=== PATIENT | female | born 1975 | race American Indian/Alaskan Native ===

== ENCOUNTER 2016-04-07 16:53 | Emergency (ER) | payer MEDICAID ==
[2016-04-07] MEDS ORDERED: TYLENOL PO ONE (17:01)
[2016-04-07] MEDS ORDERED: MOTRIN PO ONE (18:21)
--- NOTE | 2016-04-07 18:27 | Emergency Department Report ---
Chief Complaint: Fever Stated Complaint: FLU SX/FEVER/HEADACHE Time Seen by Provider: 04/07/16 18:19 - HPI History of Present Illness: 40-year-old female comes in for flulike symptoms 3 days. She reports that a headache and fever here today her fever is 102.6R recheck that at 102.2. Patient reports she's been having a cough and when she coughs it makes her head hurt even more. She was given Tylenol 2 hours ago with no refills or fever. LMP 04/06/2016 - Exam Vital Signs: Vital Signs 04/07/16 04/07/16 16:57 17:07 Temperature 102.6 F H Pulse Rate 111 H Respiratory 20 20 Rate Blood Pressure 138/100 O2 Sat by Pulse 99 Oximetry Physical Exam: NAD, no acute distress tachycardic respiratory clear to auscultation MSE screening note: Focused history and physical exam performed. Due to findings the following was ordered: CBC BMP and influenza ordered ED Disposition for MSE Condition: Stable
[2016-04-07 18:37] LABS: Basophils % (Auto) 0.4 % (0.0-1.8); Eosinophils % (Auto) 0.1 % (0.0-4.3); Hematocrit 34.8 % (30.3-42.9); Hemoglobin 11.6 gm/dl (10.1-14.3); Mean Corpuscular HGB Conc 33 % (30-34); Mean Corpuscular Hemoglobin 29 pg (28-32); Mean Corpuscular Volume 87 fl (79-97); Platelet Count 278 K/mm3 (140-440); Red Blood Count 4.02 M/mm3 (3.65-5.03); White Blood Count 3.8 K/mm3 (4.5-11.0)
[2016-04-07 18:54] LABS: BUN/Creatinine Ratio 6.66; Blood Urea Nitrogen 6 mg/dL (7-17); Calcium 8.4 mg/dL (8.4-10.2); Carbon Dioxide 26 mmol/L (22-30); Chloride 94.5 mmol/L (98-107); Glucose 153 mg/dL (65-100); Sodium 135 mmol/L (137-145)
[2016-04-07 19:20] LABS: Anion Gap 18 mmol/L
[2016-04-08] MEDS ORDERED: NACL 0.9% 1000 ML 1,000 ML IV ONE (08:23)
[2016-04-08] MEDS ORDERED: TYLENOL #3 PO ONE (08:23)
[2016-04-08] MEDS ORDERED: K-DUR PO ONE (08:23)
--- NOTE | 2016-04-08 08:27 | Emergency Department Report ---
ED Fever HPI - General Chief Complaint: Fever Stated Complaint: FLU SX/FEVER/HEADACHE Time Seen by Provider: 04/07/16 18:19 Source: patient Exam Limitations: no limitations - History of Present Illness Initial Comments: Patient reports flu-like symptoms such as generalized body aches, headache, cough and fever that started 3 days ago. LMP 04/06/16 Timing/Duration: other (3 days ago) Fever Severity/Quality: greater than 102 F Fever Therapy [employer]: other (TheraFlu) Associated Symptoms: cough, headache, muscle aches. denies: abdominal pain, chest pain, confusion, diaphoresis, nausea/vomiting, rash, shortness of breath, sore throat, stiff neck, syncope, weakness ED Review of Systems ROS: Stated complaint: FLU SX/FEVER/HEADACHE Other details as noted in HPI Constitutional: chills, fever. denies: diaphoresis, malaise, weakness Eyes: denies: eye pain, eye discharge, vision change ENT: denies: ear pain, throat pain, dental pain, hearing loss, epistaxis, congestion Respiratory: cough. denies: orthopnea, shortness of breath, SOB with exertion, SOB at rest, stridor, wheezing Cardiovascular: denies: chest pain, palpitations, dyspnea on exertion, orthopnea , edema, syncope, paroxysmal nocturnal dyspnea Gastrointestinal: denies: abdominal pain, nausea, vomiting, diarrhea, constipation Genitourinary: denies: urgency, dysuria, frequency, hematuria, discharge, abnormal menses, dyspareunia Musculoskeletal: arthralgia (generalized). denies: back pain, joint swelling, myalgia Skin: denies: rash, lesions, change in color, change in hair/nails, pruritus Neurological: headache. denies: weakness, numbness, paresthesias, confusion, abnormal gait, vertigo ED Past Medical Hx - Past Medical History Previous Medical History?: Yes Hx Hypertension: Yes (2012) Hx Congestive Heart Failure: No Hx Diabetes: No Hx GERD: Yes Hx Psychiatric Treatment: Yes (anxiety) Hx Asthma: No Hx COPD: No Additional medical history: Thrombocytosis - Surgical History Past Surgical History?: Yes Hx Cholecystectomy: Yes Additional Surgical History: tubal ligation - Social History Smoking Status: Never Smoker Substance Use Type: Alcohol, Prescribed, Other - Medications Home Medications: Home Medications Medication Instructions Recorded Confirmed Last Taken Type Famotidine [Pepcid] 40 mg PO DAILY 10/21/16 10/21/16 10/20/16 History 40mg Ferrous Sulfate [Feosol 325 MG tab] 325 mg PO DAILY 01/15/16 01/15/16 01/14/16 History 325mg Triamter/Hctz 37.5-25 mg 1 tab PO QDAY 01/15/16 01/15/16 01/14/16 History [Maxzide-25] 37.5/25 mg HYDROcodone/APAP 5-325 [[place] 1 - 2 each PO Q6HR PRN #10 tablet 01/18/16 Unknown Rx 5/325] Ibuprofen [Motrin 800 MG tab] 800 mg PO Q8HR PRN #20 tablet 01/18/16 Unknown Rx Benzonatate [Tessalon Perles] 100 mg PO Q8HR #12 capsule 04/08/16 Unknown Rx Ibuprofen [Motrin 800 MG tab] 800 mg PO Q8HR PRN #30 tablet 04/08/16 Unknown Rx ED Physical Exam - General Limitations: No Limitations General appearance: alert, in no apparent distress - Head Head exam: Present: atraumatic, normocephalic, normal inspection - Eye Eye exam: Present: normal appearance, PERRL, EOMI Pupils: Present: normal accommodation - ENT ENT exam: Present: normal exam, normal orophraynx, mucous membranes moist, TM's normal bilaterally, normal external ear exam. Absent: mucous membranes dry - Neck Neck exam: Present: normal inspection, full ROM. Absent: tenderness, meningismus, lymphadenopathy, thyromegaly - Respiratory Respiratory exam: Present: normal lung sounds bilaterally. Absent: respiratory distress, wheezes, rales, rhonchi, stridor, chest wall tenderness, accessory muscle use, decreased breath sounds, prolonged expiratory - Cardiovascular Cardiovascular Exam: Present: normal rhythm, tachycardia, normal heart sounds. Absent: regular rate, bradycardia, systolic murmur, diastolic murmur, rubs, gallop, clicks, JVD, S3, S4 - GI/Abdominal GI/Abdominal exam: Present: soft, normal bowel sounds. Absent: distended, tenderness, guarding, rebound, rigid - Rectal Rectal exam: Present: deferred - Extremities Exam Extremities exam: Present: normal inspection, full ROM, normal capillary refill. Absent: tenderness, pedal edema, joint swelling, calf tenderness - Back Exam Back exam: Present: normal inspection, full ROM. Absent: CVA tenderness (R), CVA tenderness (L) - Neurological Exam Neurological exam: Present: alert, oriented X3, CN II-XII intact, normal gait, reflexes normal. Absent: motor sensory deficit - Psychiatric Psychiatric exam: Present: normal affect, normal mood - Skin Skin exam: Present: warm, dry, intact, normal color. Absent: rash ED Course Vital Signs 04/07/16 04/07/16 04/07/16 16:57 17:07 19:47 Temperature 102.6 F H 100.2 F H Pulse Rate 111 H Respiratory 20 20 Rate Blood Pressure 138/100 Blood Pressure [Right] O2 Sat by Pulse 99 Oximetry 04/08/16 04/08/16 02:50 11:39 Temperature 100.4 F H 98.6 F Pulse Rate 102 H 91 H Respiratory 20 18 Rate Blood Pressure Blood Pressure 141/95 125/85 [Right] O2 Sat by Pulse 98 99 Oximetry - Reevaluation(s) Reevaluation #1: 04/08/16 08:25 Intravenous fluids, pain medication and potassium orally ordered. Patient reports that her influenza swab was collected 12 hours ago, however the specimen did not make it to the lab and patient refused to have another influenza swab done again 04/08/16 11:41 Reevaluation #2: 04/08/16 09:58 Zofran, Pepcid and intravenous fluids ordered ED Medical Decision Making - Lab Data Result diagrams: 04/07/16 18:29 04/07/16 18:29 Lab Results 04/07/16 04/07/16 04/08/16 Range/Units 18:29 18:29 08:40 WBC 3.8 L (4.5-11.0) K/mm3 RBC 4.02 (3.65-5.03) M/mm3 Hgb 11.6 (10.1-14.3) gm/dl Hct 34.8 (30.3-42.9) % MCV 87 (79-97) fl MCH 29 (28-32) pg MCHC 33 (30-34) % RDW 14.0 (13.2-15.2) % Plt Count 278 (140-440) K/mm3 Lymph % (Auto) 18.6 (13.4-35.0) % [place] % (Auto) 12.7 H (0.0-7.3) % Eos % (Auto) 0.1 (0.0-4.3) % Baso % (Auto) 0.4 (0.0-1.8) % Lymph # 0.7 L (1.2-5.4) K/mm3 [place] # 0.5 (0.0-0.8) K/mm3 Eos # 0.0 (0.0-0.4) K/mm3 Baso # 0.0 (0.0-0.1) K/mm3 Seg Neutrophils % 68.2 (40.0-70.0) % Seg Neutrophils # 2.6 (1.8-7.7) K/mm3 Sodium 135 L (137-145) mmol/L Potassium 3.0 L (3.6-5.0) mmol/L Chloride 94.5 L (98-107) mmol/L Carbon Dioxide 26 (22-30) mmol/L Anion Gap 18 mmol/L BUN 6 L (7-17) mg/dL Creatinine 0.9 (0.7-1.2) mg/dL Estimated GFR > 60 ml/min BUN/Creatinine Ratio 6.66 % Glucose 153 H (65-100) mg/dL Calcium 8.4 (8.4-10.2) mg/dL Urine Color Yellow (Yellow) Urine Turbidity Clear (Clear) Urine pH 5.0 (5.0-7.0) Ur Specific Jack 1.019 (1.003-1.030) Urine Protein 100 mg/dl (Negative) mg/dL Urine Glucose (UA) Neg (Negative) mg/dL Urine Ketones Neg (Negative) mg/dL Urine Blood Mod (Negative) Urine Nitrite Neg (Negative) Urine Bilirubin Neg (Negative) Urine Urobilinogen < 2.0 (<2.0) mg/dL Ur Leukocyte Esterase Neg (Negative) Urine WBC (Auto) 4.0 (0.0-6.0) /HPF Urine RBC (Auto) 38.0 (0.0-6.0) /HPF U Epithel Cells (Auto) 2.0 (0-13.0) /HPF Hyaline Casts 1 /LPF Urine Mucus Few /HPF Urine HCG, Qual Negative (Negative) Vital Signs 04/07/16 04/07/16 04/07/16 16:57 17:07 19:47 Temperature 102.6 F H 100.2 F H Pulse Rate 111 H Respiratory 20 20 Rate Blood Pressure 138/100 Blood Pressure [Right] O2 Sat by Pulse 99 Oximetry 04/08/16 04/08/16 02:50 11:39 Temperature 100.4 F H 98.6 F Pulse Rate 102 H 91 H Respiratory 20 18 Rate Blood Pressure Blood Pressure 141/95 125/85 [Right] O2 Sat by Pulse 98 99 Oximetry - Medical Decision Making During the course of ED, Intravenous fluids, pain medication, antiemetic, Pepcid and potassium orally ordered. Patient reports symptomatic relief from symptoms after medications were given in the ED. She was sent home with prescriptions for ibuprofen and Tessalon Perles, instructed to follow-up with selected referral given in ED, he verbalize understanding - Differential Diagnosis URI, Hypokalemia, Influenza, UTI Critical care attestation.: If time is entered above; I have spent that time in minutes in the direct care of this critically ill patient, excluding procedure time. ED Disposition Clinical Impression: Hypokalemia Upper respiratory infection Qualifiers: URI type: unspecified viral URI Qualified Code(s): J06.9 - Acute upper respiratory infection, unspecified Disposition: DISCHARGED TO HOME OR SELFCARE Is pt being admited?: No Does the pt Need Aspirin: No Condition: Stable Instructions: Upper Respiratory Infection (ED) Additional Instructions: Take medication as directed. Follow up with selective referrals given at discharge. Eat potassium-rich foods such as almonds, broccoli, tomatoes, avocados, kiwi, cantaloupe, apricots, and spinach, [place] or beets Prescriptions: Ibuprofen [Motrin 800 MG tab] 800 mg PO Q8HR PRN #30 tablet PRN Reason: Pain Benzonatate [Tessalon Perles] 100 mg PO Q8HR #12 capsule Referrals: PRIMARY CARE,MD [Primary Care Provider] - 3-5 Days [facility] [Outside] - 3-5 Days Forms: Work/School Release Form(ED) Time of Disposition: 11:12
[2016-04-08 08:57] LABS: Bilirubin,Urine NEG (Negative); Blood,Urine MOD (Negative); Ketones,Urine NEG (Negative); Leukocyte Esterase,Urine NEG (Negative); Mucus,Urine FEW /HPF; Nitrite,Urine NEG (Negative); Urobilinogen,Urine < 2.0 mg/dL (<2.0)
[2016-04-08] MEDS ORDERED: PEPCID IV ONE (09:57)
[2016-04-08] MEDS ORDERED: NACL 0.9% 500 ML 500 ML IV ONE (09:57)
[2016-04-08] MEDS ORDERED: ZOFRAN IV ONE (09:57)
[2016-04-08 11:40] VITALS: BP 125/85
== END 2016-04-08 11:41 | disposition home or self-care (01) ==
LOC: ED 16:53
DX: E87.6 Hypokalemia (principal); J06.9 Acute upper respiratory infection, unspecified; R05 Cough; I10 Essential (primary) hypertension; K21.9 Gastro-esophageal reflux disease without esophagitis; F41.9 Anxiety disorder, unspecified; D47.3 Essential (hemorrhagic) thrombocythemia
CPT/HCPCS: 36415; 80048; 81001; 81025; 85025; 96361; 96374; 96375; 99284; J2405; J7030

== ENCOUNTER 2016-05-03 11:25 | Inpatient (IN) | payer MEDICAID, OTHER ==
[2016-04-27 23:24] LABS: Hematocrit 36.7 % (30.3-42.9); Hemoglobin 12.1 gm/dl (10.1-14.3); Mean Corpuscular HGB Conc 33 % (30-34); Mean Corpuscular Hemoglobin 29 pg (28-32); Mean Corpuscular Volume 88 fl (79-97); Platelet Count 398 K/mm3 (140-440); Red Blood Count 4.16 M/mm3 (3.65-5.03); Red Cell Distribution Width 14.9 % (13.2-15.2); White Blood Count 5.1 K/mm3 (4.5-11.0)
[2016-04-27 23:25] LABS: Eosinophils % (Auto) 2.9 % (0.0-4.3)
--- NOTE | 2016-05-03 11:46 | Anesthesia Consultation ---
Anesthesia Consult and Med Hx Date of service: 05/03/16 - Airway Anesthetic Teeth Evaluation: Good ROM Head & Neck: Adequate Mental/Hyoid Distance: Adequate Mallampati Class: Class II Intubation Access Assessment: Probably Good - Pulmonary Exam CTA: Yes - Cardiac Exam Cardiac Exam: RRR - Pre-Operative Health Status ASA Pre-Surgery Classification: ASA2 Proposed Anesthetic Plan: General - Pulmonary Hx Asthma: No COPD: No Hx Pneumonia: No - Cardiovascular System Hx Hypertension: Yes (past hx, lost weight and resolved) - Central Nervous System Hx Psychiatric Problems: No - Endocrine Hx End Stage Renal Disease: No - Hematic Hx Anemia: Yes - Other Systems Hx Alcohol Use: Yes (occas) Hx Cancer: No
--- NOTE | 2016-05-03 11:46 | Anesthesia Day of Surgery ---
Anesthesia Day of Surgery - Day of Surgery Patient Examined: Yes Patient H&P Reviewed: Yes Patient is NPO: Yes
[2016-05-03] MEDS ORDERED: PEPCID PO NR (12:00)
[2016-05-03] MEDS ORDERED: NACL 0.9% 1000 ML 1,000 ML IV SCH (12:00)
[2016-05-03] MEDS ORDERED: VERSED IV NR (12:00)
[2016-05-03] MEDS ORDERED: NEURONTIN PO NR (12:00)
[2016-05-03] MEDS ORDERED: ZOFRAN IV PRN ×2 (12:04→15:22)
[2016-05-03] MEDS ORDERED: SUBLIMAZE ONE (12:46)
[2016-05-03] MEDS ORDERED: MARCAINE-EPI/PF 0.5%-1:200,000 INFILTRATI ONE (12:47)
[2016-05-03] MEDS ORDERED: DECADRON ONE ×2 (12:48→12:59)
[2016-05-03] MEDS ORDERED: MARCAINE-EPI 0.25%-1:200,000 INFILTRATI ONE (12:48)
[2016-05-03] MEDS ORDERED: XYLOCAINE 1% 20 mL ONE (12:53)
--- NOTE | 2016-05-03 12:56 | History and Physical Report ---
History of Present Illness Date of examination: 05/03/16 Chief complaint: Symptomatic fibroid uterus History of present illness: Pt is a 40yo BF LMP 04/30/16 presents for surgical evaluation and treatment for symptomatic fibroid uterus with heavy prolonged vaginal bleeding. Pelvic u/ s showed a 14 x 5.9 x 9.6cm with multiple fibroids. She desires to proceed with a Robotic Assisted Total Hysterectomy with bilateral salpingectomy. She desires ovarian conservation. Past History Past Medical History: blood transfusion, other (anemia) Past Surgical History: cholecystectomy, CASE MANAGERS/uterine surgery (BTL), other ( endoscopy) [employer]NAGERS History: fibroids Family/Genetic History: none Social history: no significant social history, single Medications and Allergies Allergies Allergy/AdvReac Type Severity Reaction Status Date / Time No Known Allergies Allergy Unverified 04/26/16 16:19 Home Medications Medication Instructions Recorded Confirmed Last Taken Type No Known Home Medications [No 04/26/16 04/26/16 Unknown History Reported Home Medications] Active Meds: Active Medications Celecoxib (Celebrex) 200 mg PO PREOP NR Stop: 05/03/16 23:00 Last Admin: 05/03/16 12:45 Dose: 200 mg Famotidine (Pepcid) 20 mg PO PREOP NR Stop: 05/03/16 23:59 Last Admin: 05/03/16 12:45 Dose: 20 mg Gabapentin (Neurontin) 600 mg PO PREOP NR Stop: 05/03/16 23:59 Last Admin: 05/03/16 12:45 Dose: 600 mg Hydromorphone HCl (Dilaudid) 0.5 mg IV Q10MIN PRN PRN Reason: Pain , Severe (7-10) Stop: 05/03/16 23:59 Sodium Chloride (Nacl 0.9% 1000 Ml) 1,000 mls @ 100 mls/hr IV DIRECT JACK Last Admin: 05/03/16 12:45 Dose: 100 mls/hr Cefazolin Sodium (Ancef/Sterile Water 2 Gm/20 Ml) mls @ 80 mls/hr IV PREOP JACK PRN Reason: Protocol Midazolam HCl (Versed) 2 mg IV PREOP NR Stop: 05/03/16 23:59 Ondansetron HCl (Zofran) 4 mg IV ONCE PRN PRN Reason: Nausea And Vomiting Stop: 05/03/16 23:59 Review of Systems All systems: negative - Physical Exam Breasts: Positive: deferred Cardiovascular: Regular rate Lungs: Positive: Clear to auscultation Abdomen: Positive: normal appearance, soft Genitourinary (Female): Positive: normal external genitalia Vagina: Positive: normal moisture Uterus: Positive: enlarged Extremities: Positive: normal Results Result Diagrams: 04/27/16 08:15 All other labs normal. Ultrasound: report reviewed Assessment and Plan - Patient Problems (1) Fibroid uterus Onset Date: 05/03/16 Current Visit: Yes Status: Chronic Qualifiers: Uterine leiomyoma location: submucous Qualified Code(s): D25.0 - Submucous leiomyoma of uterus Plan to address problem: A: Symptomatic fibroid uterus - with multiple fibroids Menometrorrhagia P: Will proceed with a Robotic Assisted Total Hysterectomy with Bilateral salpingectomy Consent signed and all questions answered
[2016-05-03] MEDS ORDERED: ZEMURON IV ONE (12:58)
[2016-05-03] MEDS ORDERED: DILAUDID ONE (12:58)
[2016-05-03] MEDS ORDERED: ZOFRAN ONE (12:58)
[2016-05-03] MEDS ORDERED: DIPRIVAN 10 MG/ML IV ONE (12:58)
[2016-05-03] MEDS ORDERED: XYLOCAINE MPF 2% ONE (12:58)
[2016-05-03] MEDS ORDERED: ANCEF/STERILE WATER 2 GM/20 ML 2 GM/20 ML SYRINGE IV SCH (13:00)
[2016-05-03] MEDS ORDERED: NACL 0.9% 1000 ML 1,000 ML ONE (13:44)
[2016-05-03] MEDS ORDERED: NORMODYNE IV ONE ×2 (13:46→17:00)
[2016-05-03] MEDS ORDERED: NACL 0.9% IR ONE ×2 (14:31→14:32)
[2016-05-03] MEDS ORDERED: NEOSPORIN GU IR ONE (14:31)
[2016-05-03] MEDS ORDERED: WATER FOR IRRIG STERILE IR ONE (14:32)
[2016-05-03] MEDS ORDERED: TORADOL ONE (15:14)
[2016-05-03] MEDS ORDERED: TYLENOL PO PRN (15:22)
[2016-05-03] MEDS ORDERED: NORCO 5/325 PO PRN (15:22)
[2016-05-03] MEDS ORDERED: DULCOLAX PR PRN (15:22)
[2016-05-03] MEDS ORDERED: REGLAN IV PRN (15:22)
[2016-05-03] MEDS ORDERED: PHENERGAN PR PRN (15:22)
[2016-05-03] MEDS ORDERED: NARCAN 0.4 MG/1 ML IV PRN (15:22)
[2016-05-03] MEDS ORDERED: MILK OF MAGNESIA PO PRN (15:22)
[2016-05-03] MEDS ORDERED: BLOXIVERZ ONE (15:30)
[2016-05-03] MEDS ORDERED: ROBINUL ONE (15:30)
--- NOTE | 2016-05-03 15:39 | Operative Report ---
Operative Report Operative Report: Date of procedure: 05/03/2016 Pre-operative diagnosis: 1. Symptomatic fibroid uterus 2. Menometrorrhagia Post-operative diagnosis: Same with extensive pelvic adhesions Procedure name(s): 1. Robotic-assisted total hysterectomy 2. Bilateral salpingectomy 3. Lysis of pelvic adhesions Surgeon: Tony Calabrese MD Director Advertising: Jackelin aWshington - activities assistant Anesthesia: Raymond block followed by general endotracheal intubation EBL: 50 mL's Findings: A 12-14 week size multi-myomatous uterus with tubes showed evidence of previous tubal ligation and normal ovaries bilaterally. Omental adhesions to the anterior abdominal wall. Normal appendix. Procedure: After the patient's first correctly identified she was prepped and draped in the usual sterile fashion and placed in the dorsolithotomy position. The bladder was first catheterized using Cueva catheter and the speculum was placed in the vagina and the anterior lip of the cervix was grasped using a single-tooth tenaculum, and the medium Vesicare cup was placed. The tenaculum and speculum was then removed from the vagina and attention was then turned to the abdomen. The skin knife was used to make a small incision approximately 5 cm above the umbilicus through which a 12 mm trocar was placed under direct visualization. After adequate amount of abdominal insufflation visualization of the pelvic organs found the uterus to be enlarged and the tubes showed evidence of previous tubal ligation bilaterally, and normal ovaries bilaterally. A right lateral incision was made through which a 5 mm trocar was placed under direct visualization. The omental adhesions were obscuring the upper abdomen, thus the adhesions were taken down using the monopolar scissors. A right and left paramedian incision was made through which the 8 mm trochars were placed under direct visualization. The patient was then placed in steep Trendelenburg positioning and the robot was docked on the patient's left side. After all the robotic ports were connected and adequate functioning of the robotic arms were tested the surgeon then proceeded to the console to begin the hysterectomy. First the left round ligament was grasped, cauterized and cut, the left utero- ovarian ligaments were grasped, cauterized and cut, and the left fallopian tube also grasped, cauterized and cut along the mesosalpinx thus freeing the left ovary from the left uterine sidewall. The same procedure was performed on the right. The right round ligament was grasped, cauterized and cut, the right utero-ovarian ligaments were grasped, cauterized and cut, and the right fallopian tube also grasped, cauterized and cut along the mesosalpinx thus freeing the right ovary from the right uterine sidewall. The bladder flap was taken down anteriorly and the uterine vessels were grasped, cauterized and cut bilaterally. The cardinal ligaments were sequentially grasped, cauterized and cut down to the level of the uterosacral ligaments. At this time the posterior colpotomy was performed over the Vcare cup, and the cervix was circumscribed beginning posteriorly and meeting anteriorly until the cervix was freed. The cervix and uterus was then removed through the vagina and sent to pathology. The vaginal cuff was then closed using 2-0 Vloc suture in a running fashion. Irrigation was then performed and after good hemostasis was achieved the procedure was considered complete. The Tisseel sealant was then sprayed across the vaginal cuff site, and after excellent hemostasis was assured Interceed was placed across the vaginal cuff site. All instruments were then removed from the abdominal cavity. And each incision was closed using 0 Vicryl suture in a [id number] configuration on the fascia followed by 4-0 Monocryl suture in a subcuticular fashion on the skin. Each incision was also infiltrated using 0.5% Marcaine solution. The vaginal pack was removed. The patient tolerated the procedure well and was transported to the recovery room in stable condition.
[2016-05-03] MEDS: DILAUDID IV PRN ×3 (15:48→16:15)
[2016-05-03] MEDS ORDERED: D5LR 1,000 ML IV SCH (16:00)
[2016-05-03] MEDS: PERCOCET 5/325 PO PRN ×2 (16:39→22:40)
--- NOTE | 2016-05-03 17:44 | Post Anesthesia Evaluation ---
- Post Anesthesia Evaluation Patient Participated: Yes Airway Patent: Yes Stable Respiratory Function: Yes Nausea/Vomiting: No Temp > 96.8F: Yes Pain Manageable: Yes Adequeate Hydration: Yes Anesthesia Complications: No Block Receding Appropriately: Not Applicable Patient on Ventilator: No
[2016-05-03] MEDS: TORADOL IV SCH (20:45)
[2016-05-03] MEDS: ANCEF/NS 1 GM/50 ML 1 GM/50 ML BAG IV SCH (21:00)
[2016-05-04] MEDS: TORADOL IV SCH ×2 (02:13→10:00)
[2016-05-04] MEDS ORDERED: APRESOLINE IV PRN (02:40)
[2016-05-04] MEDS ORDERED: PROCARDIA XL PO SCH ×2 (03:00→12:00)
[2016-05-04] MEDS: ANCEF/NS 1 GM/50 ML 1 GM/50 ML BAG IV SCH (04:00)
[2016-05-04 04:12] LABS: Hematocrit 34.6 % (30.3-42.9); Hemoglobin 11.4 gm/dl (10.1-14.3)
[2016-05-04] MEDS: PERCOCET 5/325 PO PRN ×2 (07:50→16:45)
--- NOTE | 2016-05-04 09:42 | Admit Criteria Form ---
Admission Criteria Documentation: AMBULATORY SURGERY EXCEPTION CRITERIA Ambulatory Surgery Exception Criteria ( Place 'X' for any and all applicable criteria): Surgery or procedure performed on ambulatory basis may require inpatient stay for[A] ANY ONE of the following(1)(2)(3)(4)(5)(6)(7)(8)(9): [X] I. A preoperative situation, condition, or finding that warrants inpatient stay as indicated by ANY ONE of the following: [X] a) Inpatient care needed because of severity of a disease or condition rather than the surgery (eg, severe cardiac or respiratory disease, severe infection) (15) (16 ) (17) (18) [] b) Emergent procedure (eg, angioplasty for acute ischemia)(19) [] c) Complex surgical approach or situation as indicated by ANY ONE of the following(3): [] i) Open approach needed instead of usual endoscopic, transcatheter, or other less invasive procedure [] ii) Difficult approach because of previous operation [] iii) Airway monitoring required after open neck procedures(20)(21) [] iv) Large mass requiring unusually extensive dissection [] v) Additional complicating feature requiring inpatient care (eg, drain management)(22(23): [] d) Major surgery in a pt with high anesthetic risk as indicated by ANY ONE of the following (2)(3)(5)(7)(8): [] i) ASA risk class III or higher (severe systemic disease impairing function) [D] [] ii) Advanced age (eg, older than 85 years)(14)(24) [] iii) Symptomatic heart failure(25) [] iv) Symptomatic asthma or COPD(8)(21) [] v) Morbid obesity with hemodynamic or respiratory problems(20)( 21)(26)(27) [] vi) Obstructive sleep apnea(20)(21) [] vii) Former premature infants who are younger than 60 weeks [] viii) High risk for severe postoperative abnormalities (eg, severe postoperative hypocalcemia after parathyroidectomy for severe hyperparathyroidism)(27)( 28) [] ix) Unstable angina(25) [] e) Drug-related risk requiring inpatient stay as indicated by ANY ONE of the following(5)(10)(14)(32)(33) [] i) Procedure requires discontinuing drugs or other therapy (eg , antiarrhythmic medication, antiseizure medication), which necessitates inpatient observation or treatment.(18)(31) [] ii) Major surgery and high risk drug use as indicated by ANY ONE of the following: [] 1) Active abuse of cocaine or similar drug [] 2) Monoamine oxidase inhibitor use [] 3) Other drug identified as posing risk [] f) Inadequate outpatient care situation as indicated by ANY ONE of the following(5)(10)(14)(32)(33) [] i) Patient lives remote from medical facility and procedure has urgent complication potential, and temporary nearby residence cannot be arranged [] ii) Patient will have postprocedure incapacitation and inadequate assistance at home, or alternative level of care cannot be arranged. [] iii) Patient will have long general anesthesia or procedure side effect resolution time, and competent person to stay with patient on first postoperative night at home or alternative level of care cannot be arranged. []iv) Other inadequate outpatient situation that cannot be handled by other means [] II. A perioperative event, condition, or finding that warrants inpatient stay as indicated by ANY ONE of the following (1)(2)(3): [] a) Inadequate physiologic recovery: cardiovascular, respiratory, or hemodynamic status not normal or near preoperative baseline(18) [] b) Hemodynamic instability [] c) Patient not alert with near normal or baseline mental status [] d) Temperature not normal or as expected and not appropriate for outpatient treatment of condition [] e) Ambulatory or appropriate activity level status not yet achieved post procedure [E](34)(35)(36) [] f) Operative site not appropriate (eg, unexpected or excessive drainage or bleeding) [] g) Postoperative effects not resolved or adequately managed (eg, significant pain or vomiting not appropriate for outpatient or next level of care)(10)(12) [] h) Complicating features requiring inpatient care as indicated by ANY ONE of the following(37): [] i) Severe complications of procedure (eg, bowel injury, airway compromise, vascular injury,severe hemorrhage) [] ii) Extensive (eg, dissection far beyond usual scope of procedure ) or prolonged (eg, 120 minutes beyond usual) surgery needed requiring inpatient postoperative care [] iii) Conversion to an open or complex procedure that requires inpatient care (eg, open vs laparoscopic cholecystectomy, abdominal vs vaginal hysterectomy)(38) [] iv) Comorbid condition or test result identified during or post procedure that requires inpatient care (7) [] v) Malignant hyperthermia(30) [] vi) Other complicating feature requiring inpatient care(22)(23) Inpatient stay may be needed until ALL of the following are present (1)(2)(3)(4) (5)(6)(10)(14)(33)(40): []a) Physiologic recovery: cardiovascular, respiratory, and hemodynamic status normal or near preoperative baseline []b) Hemodynamic stability []c) Patient alert, with near normal or baseline mental status []d) Temperature appropriate: patient afebrile or temperature appropriate for outpt treatment of condition []e) Activity level appropriate: ambulatory or appropriate activity level post procedure []f) Operative site appropriate as indicated by ALL of the following: []i) Site dry or with expected drainage []ii) Any blood noted is as expected for procedure. []g) Postoperative effects resolved or managed as indicated by ALL of the following: []i) Pain management appropriate for outpatient (or next level of) care(10) []ii) Minimal nausea and vomiting: if present, successfully treated with oral medication(12) []iii) Headache, dizziness, or drowsiness (if present) are mild. []h) Voiding status acceptable as indicated by ANY ONE of the following: []i) Voiding spontaneously []ii) No voiding but instructions given for follow-up in 6 to 8 hours []iii) Urinary catheter in place, and instructions given for follow-up []i) Complicating features requiring inpatient care manageable at a lower level of care(37) []j) Comorbid conditions manageable at a lower level of care(37) The original [employer] content created by [employer] has been revised. The portions of the content which have been revised are identified through the use of italic text or in bold, and [employer] has neither reviewed nor approved the modified material. All other unmodified content is copyright [employer]. Please see references footnoted in the original [employer] edition 2016 Admission Criteria Met: Yes
--- NOTE | 2016-05-04 10:18 | Progress Note ---
Assessment and Plan - Patient Problems (1) Fibroid uterus Onset Date: 05/03/16 Current Visit: Yes Status: Chronic Qualifiers: Uterine leiomyoma location: submucous Qualified Code(s): D25.0 - Submucous leiomyoma of uterus (2) Status post robot-assisted surgical procedure Onset Date: 05/04/16 Current Visit: Yes Status: Resolved Plan to address problem: A: S/P RATH - POD #1 Doing well P: May go home today Subjective - Subjective Date of service: 05/04/16 Principal diagnosis: s/p RATH - POD #1 Interval history: Pt is s/p a Robotic Assisted Total Hysterectomy with bilateral salpingectomy, and doing well. Findings at surgery discussed with pt, and all questions answered. She is tolerating a reg diet without nausea or vomiting, ambulating and voiding without difficulty. Patient reports: appetite normal, voiding normally, pain well controlled, ambulating normally Objective - Vital Signs Latest vital signs: Vital Signs Temp Pulse Pulse Resp BP BP Pulse Ox 05/04/16 08:45 98.6 F 66 18 155/87 05/04/16 04:30 98.6 F 63 22 148/70 05/04/16 03:29 78 18 155/98 05/04/16 03:28 72 164/92 05/04/16 03:23 165/95 05/04/16 03:20 72 156/90 05/04/16 03:19 74 20 156/90 05/04/16 00:00 98.6 F 72 16 158/75 05/03/16 19:40 98.6 F 68 16 148/78 05/03/16 17:15 66 26 H 151/93 100 05/03/16 17:10 98.1 F 68 16 142/87 05/03/16 17:00 98.0 F 71 15 155/90 100 05/03/16 16:45 74 15 152/88 100 05/03/16 16:30 71 17 160/92 100 05/03/16 16:15 70 16 156/94 100 05/03/16 16:00 65 16 170/84 99 05/03/16 15:45 65 17 179/92 99 05/03/16 15:40 69 16 177/99 99 05/03/16 15:35 97.3 F L 71 16 174/96 96 05/03/16 13:15 90 17 167/95 100 05/03/16 13:10 73 14 175/97 100 05/03/16 13:05 77 12 177/104 99 05/03/16 13:00 73 12 155/95 100 05/03/16 12:55 77 16 129/96 100 05/03/16 11:30 99.1 F 90 17 167/95 100 Intake and Output 05/03/16 05/04/16 05/04/16 22:59 06:59 14:59 Intake Total 240 400 120 Output Total 800 Balance -560 400 120 Intake: Oral 240 400 120 Output: Urine 800 Uretheral (Cueva) 400 Other: Total, Intake Amount 240 400 120 Voiding Method Toilet Toilet # Voids Void 1 - Exam Breasts: Present: deferred Cardiovascular: Present: Regular rate Lungs: Present: Clear to auscultation Abdomen: Present: normal appearance, soft Extremities: Present: normal Incision: Present: normal, dry, intact - Labs Labs: Laboratory Tests 04/27/16 04/27/16 05/03/16 08:15 08:15 12:20 WBC 5.1 RBC 4.16 Hgb 12.1 Hct 36.7 MCV 88 MCH 29 MCHC 33 RDW 14.9 Plt Count 398 Lymph % (Auto) 40.8 H Beauregard % (Auto) 4.9 Eos % (Auto) 2.9 Baso % (Auto) 1.0 Lymph # 2.1 Beauregard # 0.3 Eos # 0.1 Baso # 0.1 Seg Neutrophils % 50.4 Seg Neutrophils # 2.6 HCG, Qual Negative Blood Type B POSITIVE Antibody Screen Negative 05/04/16 03:36 WBC RBC Hgb 11.4 Hct 34.6 MCV MCH MCHC RDW Plt Count Lymph % (Auto) Beauregard % (Auto) Eos % (Auto) Baso % (Auto) Lymph # Beauregard # Eos # Baso # Seg Neutrophils % Seg Neutrophils # HCG, Qual Blood Type Antibody Screen
[2016-05-04] MEDS ORDERED: NORMODYNE PO SCH (12:00)
--- NOTE | 2016-05-04 13:47 | Discharge Summary ---
Providers - Providers Date of Admission: 05/03/16 16:57 Date of discharge: 05/04/16 Attending physician: BERNADETTE PORTER Primary care physician: NICOLE MIMS MD Hospitalization Reason for admission: other (Symptomatic fibroid uterus; Menometrorrhagia) Procedure: other (Robotic Assisted Total Hysterectomy with Bilateral Salpingectomy) Incision: normal, dry, intact Other procedures: none complications: none Discharge diagnosis: other (s/p RATH) Hospital course: Pt is a 40yo BF LMP 04/30/16 who presented for surgical evaluation and treatment of symptomatic fibroid uterus with heavy prolonged vaginal bleeding. Pelvic u/s showed a 14 x 5.9 x 9.6cm with multiple fibroids. She underwent a Robotic Assisted Total Hysterectomy with bilateral salpingectomy without complications. Post operative course was unremarkable except for elevated BP's which was controlled with Procardia XL 30mg. By POD #1 she was tolerating a reg diet without nausea or vomiting, ambulating and voiding without difficulty, and therefore discharged to home in stable condition. Condition at discharge: Good Disposition: DISCHARGED TO HOME OR SELFCARE - Discharge Diagnoses (1) Fibroid uterus Status: Resolved Qualifiers: Uterine leiomyoma location: submucous Qualified Code(s): D25.0 - Submucous leiomyoma of uterus (2) Status post robot-assisted surgical procedure Status: Resolved Plan - Discharge Medications Prescriptions: NIFEdipine XL [Procardia Xl] 30 mg PO QDAY #30 tablet oxyCODONE /ACETAMINOPHEN [Percocet 5/325 mg] 1 tab PO Q6H PRN #30 tablet PRN Reason: Pain, Moderate (4-6) - Provider Discharge Summary Activity: routine, no sex for 6 weeks, no heavy lifting 4 weeks, no strenuous exercise Diet: routine Instructions: routine Additional instructions: [] Smoking cessation referral if applicable(refer to patient education folder for contact #) [] Refer to [facility] Booklet Call your doctor immediately for: * Fever > 100.5 * Heavy vaginal bleeding ( >1 pad per hour) * Severe persistent headache * Shortness of breath * Reddened, hot, painful area to leg or breast * Drainage or odor from incision. * Keep incision clean and dry at all times and follow doctor's instructions regarding bathing/showering - Follow up plan Follow up: PRIMARY CARE, [Primary Care Provider] - 14 Days BERNADETTE PORTER MD [Staff Physician] - 14 Days
--- NOTE | 2016-05-04 14:00 | Progress Note ---
Subjective Date of service: 05/04/16 Principal diagnosis: s/p RATH - POD #1 Interval history: 1st POD after robotic hysterectomy Patient is in the bed, comfortable. Pain is well under control. No nausea or vomiting. No anesthesia complications Objective - Constitutional Vitals: Vital Signs - 12hr 05/04/16 05/04/16 05/04/16 03:19 03:20 03:23 Temperature Pulse Rate 72 Pulse Rate [ 74 From Monitor] Respiratory 20 Rate Blood Pressure 156/90 Blood Pressure 156/90 165/95 [Right Arm] 05/04/16 05/04/16 05/04/16 03:28 03:29 04:30 Temperature 98.6 F Pulse Rate Pulse Rate [ 72 78 63 From Monitor] Respiratory 18 22 Rate Blood Pressure Blood Pressure 164/92 155/98 148/70 [Right Arm] 05/04/16 08:45 Temperature 98.6 F Pulse Rate Pulse Rate [ 66 From Monitor] Respiratory 18 Rate Blood Pressure Blood Pressure 155/87 [Right Arm] - Labs CBC & Chem 7: 05/04/16 03:36
[2016-05-04 18:22] VITALS: BP 121/88
== END 2016-05-04 17:50 | disposition home or self-care (01) | DRG 743 ==
LOC: OR 11:25 → OB 16:57
PROVIDERS: ADMIT Obstetrics & Gynecology; ATTEND Obstetrics & Gynecology
PROC: 0UT94ZZ Resection of Uterus, Percutaneous Endoscopic Approach (ICD-10-PCS; principal; 2016-05-03)
PROC: 0UTC4ZZ Resection of Cervix, Percutaneous Endoscopic Approach (ICD-10-PCS; 2016-05-03)
PROC: 0UN94ZZ Release Uterus, Percutaneous Endoscopic Approach (ICD-10-PCS; 2016-05-03)
PROC: 0UB74ZZ Excision of Bilateral Fallopian Tubes, Percutaneous Endoscopic Approach (ICD-10-PCS; 2016-05-03)
PROC: 8E0W4CZ Robotic Assisted Procedure of Trunk Region, Percutaneous Endoscopic Approach (ICD-10-PCS; 2016-05-03)
DX: D25.9 Leiomyoma of uterus, unspecified (principal); N92.1 Excessive and frequent menstruation with irregular cycle; N73.6 Female pelvic peritoneal adhesions (postinfective)
CPT/HCPCS: 36415; 64450; 84703; 85014; 85018; 85025; 86850; 86900; 86901; 88305; 88307; A4217; C1765; C9250; J0360; J0690; J1100; J1170; J1885; J2250; J2405; J2704; J2710; J3010; J7030

== ENCOUNTER 2016-05-20 11:00 | Emergency (ER) | payer SELFPAY ==
[2016-05-20] MEDS ORDERED: ZOFRAN ORAL LIQ PO ONE (14:39)
[2016-05-20] MEDS ORDERED: DILAUDID IM ONE (14:39)
--- NOTE | 2016-05-20 14:39 | Emergency Department Report ---
ED Back Pain/Injury HPI - General Chief Complaint: Back Pain/Injury Stated Complaint: BACK PAIN Time Seen by Provider: 05/20/16 14:33 Source: patient, family Limitations: No Limitations - History of Present Illness Initial Comments: Patient here complaining the lower back pain . She reports that pain started 3 days ago sometimes is all over but notes in her lower back. He reports that she took ibuprofen without any relief. She also reports that she had a spinal tap in December and abdomen having pain on and off since. She reports the pain is aching and 10 out of 10. Denies any abdominal pain. Denies any nausea vomiting. Denies any fever or chills. Denies any numbness or tingling to extremities. MD Complaint: back pain Onset/Timin -: days(s) Similar Symptoms Previously: Yes Place: home Radiation: none Severity: severe Severity scale (0 -10): 10 Quality: aching Consistency: constant Improves With: immobilization Worsens With: movement, walking Context: unknown, other ( pain is chronic) Associated Symptoms: denies: confusion, weakness, chest pain, numbness, difficulty walking, cough, difficulty urinating, diaphoresis, incontinence, fever/chills, constipation, headaches, abdominal pain, loss of appetite, malaise , nausea/vomiting, rash, seizure, shortness of breath, syncope Treatments Prior to Arrival: NSAIDS - Related Data Previous Rx's Medication Instructions Recorded Last Taken Type NIFEdipine XL [Procardia Xl] 30 mg PO QDAY #30 tablet 05/04/16 Unknown Rx oxyCODONE /ACETAMINOPHEN [Percocet 1 tab PO Q6H PRN #30 tablet 05/04/16 Unknown Rx 5/325 mg] traMADol [Ultram] 50 mg PO Q6HR PRN #30 tablet 05/20/16 Unknown Rx Allergies Allergy/AdvReac Type Severity Reaction Status Date / Time No Known Allergies Allergy Unverified 04/26/16 16:19 ED Review of Systems ROS: Stated complaint: BACK PAIN Other details as noted in HPI Comment: All other systems reviewed and negative Constitutional: denies: chills, fever ENT: denies: ear pain Respiratory: no symptoms reported Cardiovascular: denies: chest pain, palpitations, edema, syncope Gastrointestinal: denies: abdominal pain, nausea, vomiting Genitourinary: denies: urgency, dysuria, frequency, hematuria, discharge, abnormal menses, dyspareunia Musculoskeletal: back pain. denies: joint swelling, arthralgia, myalgia Skin: denies: rash Neurological: denies: headache, weakness, numbness, paresthesias, confusion, abnormal gait, vertigo ED Past Medical Hx - Past Medical History Previous Medical History?: Yes Hx Hypertension: Yes (2011) Hx Congestive Heart Failure: No Hx Diabetes: No Hx GERD: Yes Hx Seizures: Yes Hx Psychiatric Treatment: Yes (anxiety) Hx Asthma: No Hx COPD: No Additional medical history: Thrombocytosis - Surgical History Past Surgical History?: Yes Hx Cholecystectomy: Yes Additional Surgical History: tubal ligation. hysterectomy. spinal tap 2015 - Family History Family history: hypertension - Social History Smoking Status: Never Smoker Substance Use Type: Alcohol - Medications Home Medications: Home Medications Medication Instructions Recorded Confirmed Last Taken Type NIFEdipine XL [Procardia Xl] 30 mg PO QDAY #30 tablet 05/04/16 Unknown Rx oxyCODONE /ACETAMINOPHEN [Percocet 1 tab PO Q6H PRN #30 tablet 05/04/16 Unknown Rx 5/325 mg] traMADol [Ultram] 50 mg PO Q6HR PRN #30 tablet 05/20/16 Unknown Rx ED Physical Exam - General Limitations: No Limitations General appearance: alert, in no apparent distress - Head Head exam: Present: atraumatic, normocephalic, normal inspection - Eye Eye exam: Present: normal appearance, PERRL, EOMI Pupils: Present: normal accommodation - Neck Neck exam: Present: normal inspection, full ROM. Absent: tenderness, meningismus, lymphadenopathy - Respiratory Respiratory exam: Present: normal lung sounds bilaterally. Absent: respiratory distress, chest wall tenderness - Cardiovascular Cardiovascular Exam: Present: regular rate, normal rhythm, normal heart sounds - GI/Abdominal GI/Abdominal exam: Present: soft, normal bowel sounds. Absent: distended, tenderness, guarding, rebound, rigid - Extremities Exam Extremities exam: Present: normal inspection, full ROM, normal capillary refill. Absent: tenderness, pedal edema, joint swelling, calf tenderness - Back Exam Back exam: Present: normal inspection, full ROM. Absent: tenderness, CVA tenderness (R), CVA tenderness (L), muscle spasm, paraspinal tenderness, vertebral tenderness, rash noted - Neurological Exam Neurological exam: Present: alert, oriented X3, normal gait, reflexes normal. Absent: motor sensory deficit - Expanded Neurological Exam Expanded Neurological exam: Absent: innattentive, memory loss-remote event, memory loss- recent event, ataxia, receptive aphasia, expressive aphasia, total aphasia, tremor, protecting the airway Patient oriented to: Present: person, place, time Speech: Present: fluid speech Cranial nerves: EOM's Intact: Normal, Gag Reflex: Normal, Nystagmus: Normal Cerebellar function: Romberg: Normal Upper motor neuron: Pronator Drift: Normal Sensory exam: Upper Extremity Light Touch: Normal, Upper Extremity Temperature: Normal, UE 2 Point Discrimination: Normal, Lower Extremity Light Touch: Normal, Lower Extremity Temperature: Normal, LE 2 Point Discrimination: Normal Motor strength exam: RUE: 5, LUE: 5, RLE: 5, LLE: 5 DTR: bicep (R): 2+, bicep (L): 2+, tricep (R): 2+, tricep (L): 2+, knee (R): 2+ , knee (L): 2+, ankle (R): 2+, ankle (L): 2+ Best Eye Response (Kassi): (4) open spontaneously Best Motor Response (Jerome): (6) obeys commands Best Verbal Response (Jerome): (5) oriented Jerome Total: 15 - Psychiatric Psychiatric exam: Present: normal affect, normal mood - Skin Skin exam: Present: warm, dry, intact, normal color. Absent: rash ED Course Vital Signs 05/20/16 11:40 Temperature 98.8 F Pulse Rate 79 Respiratory 16 Rate Blood Pressure 129/91 O2 Sat by Pulse 98 Oximetry - Reevaluation(s) Reevaluation #1: 05/20/16 15:44 Patient given Toradol 60 mg IM and Decadron 10 mg IM for back pain. She said her pain is better. ED Medical Decision Making - Radiology Data Radiology results: report reviewed X-ray lumbar spine revealed no acute processes. Showed subluxation noted. No mention of degenerative disc disease. - Medical Decision Making ED course: I Discussed with patient that her x-ray of her lower back was normal and she will need to follow-up with orthopedic regarding chronic back pain. Patient was given Decadron 10 mg and Toradol 60 mg IM and emergency room which relieved her back pain. 3 out of 10. Patient discharged home with prescription for Ultram. Critical care attestation.: If time is entered above; I have spent that time in minutes in the direct care of this critically ill patient, excluding procedure time. ED Disposition Clinical Impression: Lower back pain Qualifiers: Chronicity: unspecified Back pain laterality: bilateral Sciatica presence: without sciatica Qualified Code(s): M54.5 - Low back pain Disposition: DISCHARGED TO HOME OR SELFCARE Is pt being admited?: No Does the pt Need Aspirin: No Condition: Stable Instructions: Back Pain (ED) Prescriptions: traMADol [Ultram] 50 mg PO Q6HR PRN #30 tablet PRN Reason: Pain Referrals: ZACKARY RODRIGUEZ MD [Staff Physician] - 3-5 Days [facility] [Outside] - 3-5 Days Forms: Work/School Release Form(ED)
[2016-05-20] MEDS ORDERED: DECADRON IM ONE (15:11)
[2016-05-20] MEDS ORDERED: TORADOL IM ONE (15:11)
--- NOTE | 2016-05-20 15:17 | XRay Report ---
Lumbar spine 3 views: History: Fall with lower back pain. Findings: Normal height of vertebral bodies and intervertebral disc. Normal articular surfaces. No fracture. No paravertebral mass. Impression: Essentially negative lumbar spine.
[2016-05-20 16:05] VITALS: BP 131/90
== END 2016-05-20 16:04 | disposition home or self-care (01) ==
LOC: ED 11:00
DX: M54.5 Low back pain (principal); I10 Essential (primary) hypertension; K21.9 Gastro-esophageal reflux disease without esophagitis; F41.9 Anxiety disorder, unspecified
CPT/HCPCS: 72100; 96372; 99283; J1100; J1885

== ENCOUNTER 2016-08-23 04:40 | Emergency (ER) | payer SELFPAY ==
[2016-08-23 05:55] VITALS: BP 158/113
--- NOTE | 2016-08-23 08:07 | Emergency Department Report ---
- General Chief complaint: Medical Clearance Stated complaint: RASH Time Seen by Provider: 08/23/16 08:02 Source: patient Mode of arrival: Ambulatory Limitations: No Limitations - History of Present Illness MD complaint: rash Location: generalized Consistency: intermittent - Related Data Previous Rx's Medication Instructions Recorded Last Taken Type NIFEdipine XL [Procardia Xl] 30 mg PO QDAY #30 tablet 05/04/16 Unknown Rx oxyCODONE /ACETAMINOPHEN [Percocet 1 tab PO Q6H PRN #30 tablet 05/04/16 Unknown Rx 5/325 mg] traMADol [Ultram] 50 mg PO Q6HR PRN #30 tablet 05/20/16 Unknown Rx Permethrin [Elimite] 60 gm TP QDAY #1 cream..g. 08/23/16 Unknown Rx Triamterene [Dyrenium] 37.5 mg PO BID #60 capsule 08/23/16 Unknown Rx hydrOXYzine HCL [Atarax] 25 mg PO Q6HR PRN #20 tablet 08/23/16 Unknown Rx Allergies Allergy/AdvReac Type Severity Reaction Status Date / Time No Known Allergies Allergy Unverified 04/26/16 16:19 Abscess Boil HPI - HPI Chief Complaint: Medical Clearance Stated Complaint: RASH Time Seen by Provider: 08/23/16 08:02 History: Yes Insect Bite, No Fever, No Pain, No Purulent Drainage, No Numbness, No Foreign Body, No Previous History HPI: Patient here for reinfestation of scabies. Also requesting refill of her triamterene medication. Home Medications: Previous Rx's Medication Instructions Recorded Last Taken Type NIFEdipine XL [Procardia Xl] 30 mg PO QDAY #30 tablet 05/04/16 Unknown Rx oxyCODONE /ACETAMINOPHEN [Percocet 1 tab PO Q6H PRN #30 tablet 05/04/16 Unknown Rx 5/325 mg] traMADol [Ultram] 50 mg PO Q6HR PRN #30 tablet 05/20/16 Unknown Rx Permethrin [Elimite] 60 gm TP QDAY #1 cream..g. 08/23/16 Unknown Rx Triamterene [Dyrenium] 37.5 mg PO BID #60 capsule 08/23/16 Unknown Rx hydrOXYzine HCL [Atarax] 25 mg PO Q6HR PRN #20 tablet 08/23/16 Unknown Rx Allergies/Adverse Reactions: Allergies Allergy/AdvReac Type Severity Reaction Status Date / Time No Known Allergies Allergy Unverified 04/26/16 16:19 ED Review of Systems ROS: Stated complaint: RASH Other details as noted in HPI Constitutional: denies: chills, fever Eyes: denies: eye pain, eye discharge, vision change ENT: denies: ear pain, throat pain Respiratory: denies: cough, shortness of breath, wheezing Cardiovascular: denies: chest pain, palpitations Endocrine: no symptoms reported Gastrointestinal: denies: abdominal pain, nausea, diarrhea Genitourinary: denies: urgency, dysuria, discharge Musculoskeletal: denies: back pain, joint swelling, arthralgia Skin: rash, pruritus, other (patient states she knows this is a scabies reinfestation and she has had this several times in the past.). denies: lesions Neurological: denies: headache, weakness, paresthesias Psychiatric: denies: anxiety, depression Hematological/Lymphatic: denies: easy bleeding, easy bruising ED Past Medical Hx - Past Medical History Previous Medical History?: Yes Hx Hypertension: Yes (2011) Hx Congestive Heart Failure: No Hx Diabetes: No Hx GERD: Yes Hx Seizures: Yes Hx Psychiatric Treatment: Yes (anxiety) Hx Asthma: No Hx COPD: No Additional medical history: Thrombocytosis - Surgical History Past Surgical History?: Yes Hx Cholecystectomy: Yes Additional Surgical History: tubal ligation. hysterectomy. spinal tap 2015 - Social History Smoking Status: Never Smoker - Medications Home Medications: Home Medications Medication Instructions Recorded Confirmed Last Taken Type NIFEdipine XL [Procardia Xl] 30 mg PO QDAY #30 tablet 05/04/16 Unknown Rx oxyCODONE /ACETAMINOPHEN [Percocet 1 tab PO Q6H PRN #30 tablet 05/04/16 Unknown Rx 5/325 mg] traMADol [Ultram] 50 mg PO Q6HR PRN #30 tablet 05/20/16 Unknown Rx Permethrin [Elimite] 60 gm TP QDAY #1 cream..g. 08/23/16 Unknown Rx Triamterene [Dyrenium] 37.5 mg PO BID #60 capsule 08/23/16 Unknown Rx hydrOXYzine HCL [Atarax] 25 mg PO Q6HR PRN #20 tablet 08/23/16 Unknown Rx ED Physical Exam - General Limitations: No Limitations General appearance: alert, in no apparent distress - Head Head exam: Present: atraumatic, normocephalic - Eye Eye exam: Present: normal appearance, PERRL, EOMI - ENT ENT exam: Present: mucous membranes moist - Neck Neck exam: Present: normal inspection - Respiratory Respiratory exam: Present: normal lung sounds bilaterally. Absent: respiratory distress - Cardiovascular Cardiovascular Exam: Present: regular rate, normal rhythm. Absent: systolic murmur, diastolic murmur, rubs, gallop - GI/Abdominal GI/Abdominal exam: Present: soft, normal bowel sounds - Extremities Exam Extremities exam: Present: normal inspection - Back Exam Back exam: Present: normal inspection - Neurological Exam Neurological exam: Present: alert, oriented X3 - Psychiatric Psychiatric exam: Present: normal affect, normal mood - Skin Skin exam: Present: warm, dry, intact, normal color, rash (excoriations noted consistent with infestation.) ED Course Vital Signs 08/23/16 05:27 Temperature 98.4 F Pulse Rate 78 Respiratory 16 Rate Blood Pressure 158/113 O2 Sat by Pulse 100 Oximetry Critical care attestation.: If time is entered above; I have spent that time in minutes in the direct care of this critically ill patient, excluding procedure time. ED Disposition Clinical Impression: Scabies infestation, Medication refill Disposition: DISCHARGED TO HOME OR SELFCARE Is pt being admited?: No Condition: Stable Instructions: Scabies (ED) Prescriptions: hydrOXYzine HCL [Atarax] 25 mg PO Q6HR PRN #20 tablet PRN Reason: Itching Permethrin [Elimite] 60 gm TP QDAY #1 cream..g. Triamterene [Dyrenium] 37.5 mg PO BID #60 capsule Referrals: PRIMARY CARE,MD [Primary Care Provider] - 3-5 Days
== END 2016-08-23 08:31 | disposition home or self-care (01) ==
LOC: ED 04:40
DX: B86 Scabies (principal); I10 Essential (primary) hypertension; K21.9 Gastro-esophageal reflux disease without esophagitis; F41.9 Anxiety disorder, unspecified; R56.9 Unspecified convulsions
CPT/HCPCS: 99282

== ENCOUNTER 2016-09-22 08:47 | Emergency (ER) | payer SELFPAY ==
--- NOTE | 2016-09-22 10:54 | Emergency Department Report ---
Entered by SAMINA WALLACE, acting as scribe for FRANCHESCA PRICE NP. ED Rash HPI - HPI Chief Complaint: Skin Rash Stated Complaint: ALLERGIC REACTION/RASH Time Seen by Provider: 09/22/16 09:32 Duration: 1 week Location: Other (left and right bilateral arms and hands) Suspected Cause: Animal (dog fleas) Rash Symptoms: Yes Itching (left and right bilateral arms and hands ), Yes Blistering (red bumps), No Facial Swelling, No Tongue/Oral Swelling, No Breathing Difficulties, No Choking Sensation, No Wheezing/Dyspnea, No Peeling, No Fever, No Lightheaded, No Malaise, No Myalgias Severity: mild Other History: 41 year old with PMHx of HTN presents to the ED c/o a burning rash on her left and right bilateral arms and hands that began 1 week ago. Patient states that she believed it was from her dog which had fleas. She followed up at [facility] with no relief. ED Review of Systems ROS: Stated complaint: ALLERGIC REACTION/RASH Other details as noted in HPI Comment: All other systems reviewed and negative Constitutional: denies: chills, diaphoresis, fever, weakness Respiratory: denies: cough, shortness of breath, wheezing Cardiovascular: denies: chest pain, palpitations Gastrointestinal: denies: abdominal pain, nausea, diarrhea Musculoskeletal: denies: back pain, joint swelling, arthralgia Skin: rash (left and right bilateral arms and hands). denies: lesions, change in color, change in hair/nails Neurological: denies: headache, weakness, numbness, paresthesias ED Past Medical Hx - Past Medical History Hx Hypertension: Yes (2011) Hx Congestive Heart Failure: No Hx Diabetes: No Hx GERD: Yes Hx Seizures: Yes Hx Psychiatric Treatment: Yes (anxiety) Hx Asthma: No Hx COPD: No Additional medical history: Thrombocytosis - Surgical History Hx Cholecystectomy: Yes Additional Surgical History: tubal ligation. hysterectomy. spinal tap 2015 - Social History Smoking Status: Current Every Day Smoker Substance Use Type: None - Medications Home Medications: Home Medications Medication Instructions Recorded Confirmed Last Taken Type NIFEdipine XL [Procardia Xl] 30 mg PO QDAY #30 tablet 05/04/16 Unknown Rx oxyCODONE /ACETAMINOPHEN [Percocet 1 tab PO Q6H PRN #30 tablet 05/04/16 Unknown Rx 5/325 mg] traMADol [Ultram] 50 mg PO Q6HR PRN #30 tablet 05/20/16 Unknown Rx Permethrin [Elimite] 60 gm TP QDAY #1 cream..g. 08/23/16 Unknown Rx Triamterene [Dyrenium] 37.5 mg PO BID #60 capsule 08/23/16 Unknown Rx hydrOXYzine HCL [Atarax] 25 mg PO Q6HR PRN #20 tablet 08/23/16 Unknown Rx Permethrin 5% [Acticin 5% CREAM] 1 applicatio TP ONCE #1 tube 09/22/16 Unknown Rx Triamcinolone 0.1% [Kenalog 0.1% 1 applic TP BID #1 tube 09/22/16 Unknown Rx CREAM] hydrOXYzine HCL [Atarax] 25 mg PO Q6HR PRN #30 tablet 09/22/16 Unknown Rx Rash Exam - Exam General: Vital signs noted. No distress. Alert and acting appropriately. HEENT: No Periorbital Edema, No Conjuctival Injection, No Chemosis, No Perioral Edema, No Tongue Edema, No Uvular Edema, No Compromised Airway, No Drooling Lungs: Yes Good Air Exchange, No Wheezes, No Ronchi, No Stridor, No Cough, No Labored Respirations, No Retractions, No Use of Accessory Muscles, No Other Abnormal Lung Sounds Heart: Yes Regular, No Murmur Other: Positive: Abdomen Normal, Neurologic Normal. Negative: Musculoskeletal Normal ED Course Vital Signs 09/22/16 08:59 Temperature 98.2 F Pulse Rate 69 Respiratory 18 Rate Blood Pressure 156/105 O2 Sat by Pulse 100 Oximetry ED Medical Decision Making - Medical Decision Making pt is a 41y/o aaf who presents for rash to bilat hands and forearms after contact dog 3 days ago , tx at outside clinic for insect bites rash appears as fleas v/s scabies will treat appropriately , pt given instructions on linen and clothing care for scabies infestation pt verabalized agreement and understanding of same. Critical care attestation.: If time is entered above; I have spent that time in minutes in the direct care of this critically ill patient, excluding procedure time. ED Disposition Clinical Impression: Scabies exposure Disposition: DC-01 TO HOME OR SELFCARE Is pt being admited?: No Does the pt Need Aspirin: No Condition: Good Instructions: Scabies (ED) Prescriptions: hydrOXYzine HCL [Atarax] 25 mg PO Q6HR PRN #30 tablet PRN Reason: Itching Permethrin 5% [Acticin 5% CREAM] 1 applicatio TP ONCE #1 tube Triamcinolone 0.1% [Kenalog 0.1% CREAM] 1 applic TP BID #1 tube Referrals: PRIMARY CARE,MD [Primary Care Provider] - 3-5 Days Forms: Work/School Release Form(ED) Time of Disposition: 10:54 This documentation as recorded by the MADISON rowe PEARL,accurately reflects the service I personally performed and the decisions made by me,FRANCHESCA PRICE, [employer] SUPERINTENDENT.
[2016-09-22 11:01] VITALS: BP 148/98
== END 2016-09-22 11:00 | disposition home or self-care (01) ==
LOC: ED 08:47
DX: Z20.89 Contact with and (suspected) exposure to other communicable diseases (principal); I10 Essential (primary) hypertension; K21.9 Gastro-esophageal reflux disease without esophagitis; F41.9 Anxiety disorder, unspecified; F17.200 Nicotine dependence, unspecified, uncomplicated
CPT/HCPCS: 99282